=== PATIENT | female | born 1975 | race Caucasian/White ===

== ENCOUNTER → 2020-01-03 | Outpatient (CLI) | payer OTHER ==
--- NOTE | 2020-01-14 13:21 | USB ---
Reason for exam: clinical finding. History: Family history of breast cancer in paternal grandmother at age 80. Physical Findings: Nurse Summary: bilateral retropectoral silicone implants, prominent scar tissue at scars (nurse ts). US Breast BILAT Right complete breast ultrasound includes all four quadrants, the retroareolar region and axilla. Finding demonstrates no cystic or solid lesion seen. Left complete breast ultrasound includes all four quadrants, the retroareolar region and axilla. Finding demonstrates no cystic or solid lesion seen. Implant more lateral. Implants seen under the muscle. Suboptimal evaluation implants. Subpectoral location visualized portions grossly intact on ultrasound. These results were verbally communicated with the patient and result sheet given to the patient on 01/13/20. ASSESSMENT: Negative, BI-RAD 1 RECOMMENDATION: Breast MRI of both breasts. MRI should be considered if remain concerned about implant integrity.
== END | disposition home or self-care (01) ==
LOC: RADUSWWP 09:43
PROVIDERS: ATTEND Family Medicine
DX: Z08 Encounter for follow-up examination after completed treatment for malignant neoplasm (principal); Z98.82 Breast implant status

== ENCOUNTER → 2020-01-10 | Outpatient (CLI) | payer OTHER ==
[2020-01-10 12:47] LABS: Anisocytosis Moderate; HCT 40.7 % (34.0-46.0); HGB 12.8 gm/dL (11.4-16.0); Hypochromasia Slight; MCH 26.7 pg (25.0-35.0); MCHC 31.5 g/dL (31.0-37.0); MCV 84.6 fL (80.0-100.0); Mean Platelet Volume 7.1; Microcytosis Slight; Platelet Count 371 k/uL (150-450); RBC 4.81 m/uL (3.80-5.40); RDW 22.2 % (11.5-15.5); WBC 8.5 k/uL (3.8-10.6)
[2020-01-10 20:34] LABS: Hemoglobin A1C 5.1 % (4.0-6.0)
[2020-01-10 20:56] LABS: Albumin 4.3 g/dL (3.80-4.90); Albumin/Globulin Ratio 1.65 (1.60-3.17); BUN/Creat Ratio 15.71 Ratio (12.00-20.00); Calcium 9.3 mg/dL (8.7-10.3); Chol/HDL Ratio 4.02; Globulin 2.6 g/dL (1.6-3.3); LDL Cholesterol,Calculated 122.2 mg/dL (0.0-131.0); Non-African American GFR(CKD) 106.1 (60.0-200.0); Potassium 4.2 mmol/L (3.5-5.5); Total Bilirubin 0.5 mg/dL (0.3-1.2); Total Protein 6.9 g/dL (6.2-8.2); VLDL Calculation 25.8 mg/dL (5.00-40.00)
[2020-01-10 21:06] LABS: T4, Free (Free Thyroxine) 0.9 ng/dL (0.80-1.80)
[2020-01-10 21:34] LABS: Thyroid Peroxidase Antibodies 55.7 U/mL (0.0-60.0)
== END | disposition home or self-care (01) ==
LOC: LABWHC1 11:43
PROVIDERS: ATTEND Family Medicine
DX: R53.83 Other fatigue (principal)
CPT/HCPCS: 36415; 80053; 80061; 82306; 83036; 84439; 84443; 84481; 85027; 86376; 86800

== ENCOUNTER → 2020-05-15 | Outpatient (CLI) | payer OTHER | END | disposition home or self-care (01) | LOC: RADMRIMAIN 08:43 | PROVIDERS: ATTEND Family Medicine | DX: Z53.9 Procedure and treatment not carried out, unspecified reason (principal) ==